=== PATIENT | female | born 2005 | race Caucasian/White ===

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

== ENCOUNTER 2024-01-04 15:22 | Emergency (ER) | payer SELFPAY ==
--- NOTE | 2024-01-04 15:25 | ERPHSYRPT ---
- History of Present Illness Time Seen by Provider: 01/04/24 15:25 Source: patient, family, EMS, old records Exam Limitations: no limitations Physician History: This is a 18-year-old white female patient of Dr. Ana Perez who arrives by [employer] transport secondary to a "syncopal episode" that occurred prior to arrival. 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 She was sitting down going through items when suddenly she woke up lying flat. Mother witnessed this episode. Patient's mother states that the patient became very pale just prior to "passing out" patient arrives with room air oxygen saturation level 100%. Heart rate is 68. Patient has a history of chronic palpitations, mitral valve prolapse, migraine headaches, asthma and ADD. Patient states her last menstrual period ended on 12/27/2023. Patient had mild chest pain which has resolved and mild epigastric discomfort which also resolved. Patient has not had fevers. She has not had any flulike symptoms. She denies nausea vomiting and diarrhea. Timing/Duration: today Severity: mild Character of Deficits: none Deficits: no difficulties Baseline/Normal Cognition: alert 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 Current Cognition: alert 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 Baseline Gait: walks w/o assistance Associated Symptoms: weakness, No confusion, No loss of consciousness, No ringing in ears, No vision changes, No chest pain, No headache Allergies/Adverse Reactions: No Known Drug Allergies Allergy (Verified 01/04/24 15:24) Hx Tetanus, Diphtheria Vaccination/Date Given: Yes Hx Influenza Vaccination/Date Given: No Hx Pneumococcal Vaccination/Date Given: No Travel Risk - International Travel Have you traveled outside of the country in past 3 weeks: No - Emerging Infectious Disease Are you exhibiting symptoms associated with any current EIDs: No - Review of Systems Constitutional: Weakness Eyes: No Symptoms Ears, Nose, & Throat: No Symptoms Respiratory: No Symptoms Cardiac: No Symptoms Abdominal/Gastrointestinal: No Symptoms Genitourinary Symptoms: No Symptoms Musculoskeletal: No Symptoms Skin: No Symptoms Neurological: No Symptoms Psychological: No Symptoms Endocrine: No Symptoms Hematologic/Lymphatic: No Symptoms Immunological/Allergic: No Symptoms All Other Systems: Reviewed and Negative - Past Medical History Pertinent Past Medical History: Yes Neurological History: Migraines ENT History: No Pertinent History Cardiac History: Other Respiratory History: Asthma Endocrine Medical History: No Pertinent History Musculoskeletal History: No Pertinent History GI Medical History: No Pertinent History, Other History: No Pertinent History Psycho-Social History: Attention Deficit Disorder Female Reproductive Disorders: No Pertinent History, Other Other Medical History: Curvature of the spine with a softened disc., mitral valve prolapse, palpatations - Past Surgical History Past Surgical History: No Neuro Surgical History: No Pertinent History Cardiac: No Pertinent History Respiratory: No Pertinent History Gastrointestinal: No Pertinent History Genitourinary: No Pertinent History Musculoskeletal: No Pertinent History Female Surgical History: No Pertinent History Other Surgical History: . Significant Family History: no pertinent family hx - Female History Hx Last Menstrual Period: NA - Social History Smoking Status: Never smoker Exposure to second hand smoke: Yes Alcohol Use: None Drug Use: none Patient Lives Alone: Yes - Nursing Vital Signs Nursing Vital Signs: Initial Vital Signs Temperature 99 F 01/04/24 15:24 Pulse Rate 86 01/04/24 15:24 Respiratory Rate 18 01/04/24 15:24 Blood Pressure 108/56 01/04/24 15:24 O2 Sat by Pulse Oximetry 99 01/04/24 15:24 Pain Scale Pain Intensity 3 - [place] Coma Scale Best Eye Response (Ramírez): (4) open spontaneously Best Verbal Response ([place]): (5) oriented Best Motor Response (Ramírez): (6) obeys commands Ramírez Total: 15 - Physical Exam General Appearance: no apparent distress, alert, anxiety, thin Eye Exam: bilateral eye: normal inspection, PERRL, EOMI Ears, Nose, Throat Exam: normal ENT inspection, moist mucous membranes Neck Exam: normal inspection, non-tender, supple, full range of motion Respiratory: normal breath sounds, lungs clear, airway intact, No chest tenderness, No respiratory distress Cardiovascular: regular rate/rhythm, normal heart sounds, normal peripheral pulses Gastrointestinal: soft, normal bowel sounds, No tenderness Pelvic Exam: not done Rectal Exam: not done Back Exam: normal inspection, normal range of motion, No CVA tenderness, No vertebral tenderness Extremity Exam: normal inspection, normal range of motion, pelvis stable Mental Status: alert, 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, 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 QTc is 411) Ordered Tests: Active Orders 24 hr Category Date Time Status Drapery Sewer Hand STAT Care 01/04/24 15:25 Active Clean Catch Urine Specimen STAT Care 01/04/24 15:25 Active EKG-ER Only STAT Care 01/04/24 15:25 Active IV Insertion STAT Care 01/04/24 15:25 Active HEAD WITHOUT CONTRAST [CT] Stat Exams 01/04/24 15:25 Completed CBC W DIFF Stat Lab 01/04/24 15:40 Completed CMP Stat Lab 01/04/24 15:40 Completed CULTURE,URINE Stat Lab 01/04/24 16:45 Received ETHYL ALCOHOL Stat Lab 01/04/24 15:40 Completed HCG QUALITATIVE, SERUM Stat Lab 01/04/24 15:40 Completed TROPONIN Q4H Lab 01/04/24 15:27 Received TROPONIN Q4H Lab 01/04/24 21:15 Ordered UA W/RFX UR CULTURE Stat Lab 01/04/24 16:45 Completed Urine Triage Profile Stat Lab 01/04/24 16:45 Completed Medication Summary Generic Name Dose Route Start Last Admin Trade Name Freq PRN Reason Stop Dose Admin Ceftriaxone Sodium 1 gm in 100 mls @ 200 mls/hr 01/04/24 17:01 Rocephin 1 Gm / 100 Ml Nacl IV 01/04/24 17:30 STAT ONE Discontinued Medications Generic Name Dose Route Start Last Admin Trade Name Freq PRN Reason Stop Dose Admin Sodium Chloride 1,000 mls @ 999 mls/hr 01/04/24 15:25 01/04/24 16:46 Sodium Chloride 0.9% 1000 Ml IV 01/04/24 16:25 Infused .Q1H1M STA Infusion Sodium Chloride Confirm 01/04/24 15:35 Sodium Chloride 0.9% 1000 Ml Administered 01/04/24 15:36 Dose 1,000 mls @ ud .ROUTE .STK-MED ONE Lab/Rad Data: Laboratory Result Diagrams 01/04/24 15:40 01/04/24 15:40 Laboratory Results 01/04/24 01/04/24 01/04/24 Range/Units 16:45 16:45 15:40 WBC (3.98-10.04) x10^3/uL RBC (3.93-5.22) x10^6/uL Hgb (11.2-15.7) g/dL Hct (34.1-44.9) % MCV (79.4-94.8) fL MCH (25.6-32.2) pg MCHC (32.2-35.5) g/dL RDW (11.7-14.4) % Plt Count (182-369) x10^3/uL MPV (9.4-12.3) fL Gran % (34.0-71.1) % Immature Gran % (Auto) (0.001-0.429) % Nucleat RBC Rel Count (0.00-0.2) % Eos # (Auto) (0.04-0.36) x10^3/uL Immature Gran # (Auto) (0.001-0.031) x10^3u/L Absolute Lymphs (auto) (1.18-3.74) x10^3/uL Absolute Monos (auto) (0.24-0.86) x10^3/uL Absolute Nucleated RBC (0.00-0.012) x10^3u/L Lymphocytes % (19.3-51.7) % Monocytes % (4.7-12.5) % Eosinophils % (0.7-5.8) % Basophils % (0.1-1.2) % Absolute Granulocytes (1.56-6.13) x10^3/uL Basophils # (0.01-0.08) x10^3/uL Sodium (135-145) mmol/L Potassium (3.5-5.1) mmol/L Chloride (98-107) mmol/L Carbon Dioxide (22-30) mmol/L Anion Gap (5-15) MEQ/L BUN (7-17) mg/dL Creatinine (0.52-1.04) mg/dL Estimated GFR ML/MIN Glucose (74-106) mg/dL Calcium (8.4-10.2) mg/dL Total Bilirubin (0.2-1.3) mg/dL AST (14-36) U/L ALT (0-35) U/L Alkaline Phosphatase (38-126) U/L Serum Total Protein (6.3-8.2) g/dL Albumin (3.5-5.0) g/dL Serum HCG, Qual NEGATIVE (NEGATIVE) Urine Color Yellow (Yellow) Urine Appearance Cloudy A (Clear) Urine pH 8.5 A (4.6-8.0) Ur Specific [place] 1.025 (1.005-1.030) Urine Protein Trace A (Negative) Urine Glucose (UA) Negative (Negative) mg/dL Urine Ketones 15 A (Negative) Urine Blood Negative (Negative) Urine Nitrite Negative (Negative) Urine Bilirubin Negative (Negative) Urine Urobilinogen 1.0 A (0.2) mg/dL Ur Leukocyte Esterase Trace A (Negative) U Hyaline Cast (Auto) NONE SEEN (0-2) /LPF Urine Microscopic RBC 0-2 (0-5) /HPF Urine Microscopic WBC 0-2 (0-5) /HPF Ur Epithelial Cells Rare (None Seen) /HPF Urine Bacteria None Seen (None Seen) /HPF Urine Culture Reflexed YES (NO) Urine Opiates Level NEGATIVE (NEGATIVE) Ur Methadone NEGATIVE (NEGATIVE) Urine Barbiturates NEGATIVE (NEGATIVE) Ur Phencyclidine (PCP) NEGATIVE (NEGATIVE) Urine Amphetamine NEGATIVE (NEGATIVE) U Benzodiazepine Level NEGATIVE (NEGATIVE) Urine Cocaine NEGATIVE (NEGATIVE) Urine Marijuana (THC) NEGATIVE (NEGATIVE) Ethyl Alcohol (0-10) mg/dL 01/04/24 01/04/24 Range/Units 15:40 15:40 WBC 9.4 (3.98-10.04) x10^3/uL RBC 4.00 (3.93-5.22) x10^6/uL Hgb 12.2 (11.2-15.7) g/dL Hct 35.7 (34.1-44.9) % MCV 89.3 (79.4-94.8) fL MCH 30.5 (25.6-32.2) pg MCHC 34.2 (32.2-35.5) g/dL RDW 11.9 (11.7-14.4) % Plt Count 267 (182-369) x10^3/uL MPV 10.7 (9.4-12.3) fL Gran % 56.0 (34.0-71.1) % Immature Gran % (Auto) 0.3 (0.001-0.429) % Nucleat RBC Rel Count 0.0 (0.00-0.2) % Eos # (Auto) 0.13 (0.04-0.36) x10^3/uL Immature Gran # (Auto) 0.03 (0.001-0.031) x10^3u/L Absolute Lymphs (auto) 3.23 (1.18-3.74) x10^3/uL Absolute Monos (auto) 0.71 (0.24-0.86) x10^3/uL Absolute Nucleated RBC 0.00 (0.00-0.012) x10^3u/L Lymphocytes % 34.3 (19.3-51.7) % Monocytes % 7.5 (4.7-12.5) % Eosinophils % 1.4 (0.7-5.8) % Basophils % 0.5 (0.1-1.2) % Absolute Granulocytes 5.28 (1.56-6.13) x10^3/uL Basophils # 0.05 (0.01-0.08) x10^3/uL Sodium 139 (135-145) mmol/L Potassium 3.6 (3.5-5.1) mmol/L Chloride 106 (98-107) mmol/L Carbon Dioxide 23 (22-30) mmol/L Anion Gap 14.1 (5-15) MEQ/L BUN 11 (7-17) mg/dL Creatinine 0.73 (0.52-1.04) mg/dL Estimated GFR 120.7 ML/MIN Glucose 105 (74-106) mg/dL Calcium 9.7 (8.4-10.2) mg/dL Total Bilirubin 1.00 (0.2-1.3) mg/dL AST 22 (14-36) U/L ALT 11 (0-35) U/L Alkaline Phosphatase 53 (38-126) U/L Serum Total Protein 7.6 (6.3-8.2) g/dL Albumin 4.6 (3.5-5.0) g/dL Serum HCG, Qual (NEGATIVE) Urine Color (Yellow) Urine Appearance (Clear) Urine pH (4.6-8.0) Ur Specific [place] (1.005-1.030) Urine Protein (Negative) Urine Glucose (UA) (Negative) mg/dL Urine Ketones (Negative) Urine Blood (Negative) Urine Nitrite (Negative) Urine Bilirubin (Negative) Urine Urobilinogen (0.2) mg/dL Ur Leukocyte Esterase (Negative) U Hyaline Cast (Auto) (0-2) /LPF Urine Microscopic RBC (0-5) /HPF Urine Microscopic WBC (0-5) /HPF Ur Epithelial Cells (None Seen) /HPF Urine Bacteria (None Seen) /HPF Urine Culture Reflexed (NO) Urine Opiates Level (NEGATIVE) Ur Methadone (NEGATIVE) Urine Barbiturates (NEGATIVE) Ur Phencyclidine (PCP) (NEGATIVE) Urine Amphetamine (NEGATIVE) U Benzodiazepine Level (NEGATIVE) Urine Cocaine (NEGATIVE) Urine Marijuana (THC) (NEGATIVE) Ethyl Alcohol < 10 (0-10) mg/dL - Progress Progress: improved, re-examined Progress Note: 01/04/24 16:59 My medical decision making and the assignment of moderate complexity is based on review of the patient's past medical history, review of the patient's medication list, review of patient drug allergy list, history present illness and physical findings on examination. The workup in this patient includes placement of intravenous line, infusion of normal saline solution, twelve-lead EKG, troponin level, CBC, CMP, test, urinalysis and CT scan of the head without contrast. Differential diagnosis includes but is not limited to overheating, urinary tract infection, dehydration, , anemia, myocardial infarction, electrolyte a bnormalities, arrhythmia 01/04/24 17:22 I interpreted the patient's laboratory data results. Based on the laboratory data results, the patient has a urinary tract infection. There are no other acute, emergent medical issues. CT scan of the head without contrast was interpreted by the radiologist and I reviewed the impression. The impression states nonacute CT scan of the head without contrast. Counseled pt/family regarding: lab results, diagnosis, need for follow-up, rad results Medical Desision Making - Independent Historian Additional History obtained from: Mother - Diagnostic Testing Diagnostic test were ordered, analyzed, and reviewed by me: Yes Radiological Interpretation: Reviewed by me, Teleradiologist Report - Risk of complications The pt has a mod risk of morbidity or mortality based on: Need for prescription drug management - Departure Departure Disposition: Home Clinical Impression: UTI (urinary tract infection), Mild dehydration, Episode of syncope Condition: Stable Critical Care Time: No Referrals: ANTONELLA PEREZ [ACTIVE STAFF] - Follow up/PCP as directed Additional Instructions: Drink plenty fluids. Take your antibiotics and other medications as prescribed. Call your prescribing provider tomorrow, 01/05/2024, to make arranges for follow-up appointment for further evaluation management. Prescriptions: Cephalexin Mh 500 mg [Keflex 500 mg] 500 mg PO TID #15 cap
[2024-01-04 15:34] VITALS: TEMP 99
[2024-01-04] MEDS ORDERED: Sodium Chloride 0.9% 1000 ML 1,000 ML ONE (15:35)
[2024-01-04] MEDS: Sodium Chloride 0.9% 1000 ML 1,000 ML IV STA (15:37)
[2024-01-04 15:47] LABS: Absolute Neutrophil Ct (ANC) 5.28 x10^3/uL (1.56-6.13); BASOPHIL % 0.5 % (0.1-1.2); Basophil (Absolute #) 0.05 x10^3/uL (0.01-0.08); Eosinophil % 1.4 % (0.7-5.8); Eosinophil (Absolute #) 0.13 x10^3/uL (0.04-0.36); Hematocrit 35.7 % (34.1-44.9); Hemoglobin 12.2 g/dL (11.2-15.7); IMMATURE GRAN # 0.03 x10^3u/L (0.001-0.031); IMMATURE GRAN % 0.3 % (0.001-0.429); Lymphocyte (Absolute #) 3.23 x10^3/uL (1.18-3.74); Lymphocytes % 34.3 % (19.3-51.7); Mean Cell Volume 89.3 fL (79.4-94.8); Mean Corpuscular Hemoglobin 30.5 pg (25.6-32.2); Mean Corpuscular Hgb Concent. 34.2 g/dL (32.2-35.5); Mean Platelet Volume 10.7 fL (9.4-12.3); Monocyte (Absolute #) 0.71 x10^3/uL (0.24-0.86); Monocytes % 7.5 % (4.7-12.5); Platelet Count 267 x10^3/uL (182-369); Red Cell Distribution Width 11.9 % (11.7-14.4); White Blood Count 9.4 x10^3/uL (3.98-10.04)
[2024-01-04 16:00] LABS: HCG SERUM TEST NEGATIVE (NEGATIVE)
[2024-01-04 16:02] LABS: ALBUMIN 4.6 g/dL (3.5-5.0); ALKALINE PHOSPHATASE 53 U/L (38-126); ANION GAP 14.1 MEQ/L (5-15); BLOOD UREA NITROGEN 11 mg/dL (7-17); CHLORIDE 106 mmol/L (98-107); Calcium 9.7 mg/dL (8.4-10.2); Carbon Dioxide 23 mmol/L (22-30); Creatinine 1 0.73 mg/dL (0.52-1.04); EST GLOMERULAR FILTRATION RATE 120.7 ML/MIN; ETHYL ALCOHOL < 10 mg/dL (0-10); Glucose 105 mg/dL (74-106); Potassium 3.6 mmol/L (3.5-5.1); SGOT/AST 22 U/L (14-36); SGPT/ALT 11 U/L (0-35); SODIUM 139 mmol/L (135-145); Total Protein 7.6 g/dL (6.3-8.2)
[2024-01-04 16:46] VITALS: O2SAT 100
[2024-01-04 16:51] LABS: Appearance Cloudy (Clear); Bacteria None Seen /HPF (None Seen); Bilirubin Negative (Negative); Blood Negative (Negative); Epithelial Cells Rare /HPF (None Seen); Glucose, Urine Negative (Negative); Hyaline Casts NONE SEEN /LPF (0-2); Ketones 15 (Negative); Leukocyte Esterase Trace (Negative); Nitrite Negative (Negative); Ph 8.5 (4.6-8.0); Protein,Urine Dip Trace (Negative); RBC 0-2 /HPF (0-5); Specific Gravity 1.025 (1.005-1.030); WBC 0-2 /HPF (0-5)
[2024-01-04 16:53] LABS: ADD URINE CULTURE? YES (NO)
[2024-01-04 17:17] LABS: Amphetamine,Urine NEGATIVE (NEGATIVE); Barbiturate,Urine NEGATIVE (NEGATIVE); Benzodiazepine,Urine NEGATIVE (NEGATIVE); Cocaine,Urine NEGATIVE (NEGATIVE); Methadone,Urine NEGATIVE (NEGATIVE); Opiate,Urine NEGATIVE (NEGATIVE); PCP,Urine NEGATIVE (NEGATIVE); THC,Urine NEGATIVE (NEGATIVE)
--- NOTE | 2024-01-04 17:18 | XRAY ---
Indication: Syncope. No known injury. Multiple contiguous axial images obtained through the head without contrast. Comparison: March 15, 2018 Normal appearing brain parenchyma, ventricles, and bony calvarium. Visualized paranasal sinuses and mastoid air cells are clear. Impression: Continued normal CT head without contrast exam.
[2024-01-04] MEDS ORDERED: ROCEPHIN 1 GM / 100 ML NaCl 1 GM/100 ML IVPB IV ONE (17:26)
[2024-01-04] MEDS: ROCEPHIN 1 GM / 100 ML NaCl 1 GM/100 ML IVPB IV ONE (17:28)
[2024-01-04 17:56] VITALS: BP 112/73; PULSE 70; RESP 15
== END 2024-01-04 18:06 | disposition home or self-care (01) ==
LOC: ED 15:22
DX: N39.0 Urinary tract infection, site not specified (principal); E86.0 Dehydration; R55 Syncope and collapse; Z79.899 Other long term (current) drug therapy
CPT/HCPCS: 36000; 36415; 70450; 80053; 80307; 81001; 82077; 84484; 84703; 85025; 87086; 93005; 93041; 96365; 99284; J0696